=== PATIENT | female | born 1960 | race Two or more races ===

== ENCOUNTER 2025-07-30 06:32 | Emergency (ER) | payer MEDICARE, MEDICAID, SELFPAY ==
[2025-07-30 06:39] VITALS: BP 148/95; PULSE 93; RESP 18; TEMP 36.7; O2SAT 95
--- NOTE | 2025-07-30 06:50 | XR_ITS ---
Examination: Venous duplex lower extremity sonogram, bilateral. Date and time of exam: July 30, 2025, Technique: Multiple sonographic images of the deep venous system have been obtained. B-mode/2-D grayscale imaging of vascular structures and Doppler spectral analysis (waveforms) and color performed Both legs are examined. Findings: Deep venous systems do not demonstrate abnormal echogenicity. All visualized deep veins exhibit compressibility. All visualized deep veins exhibit augmentation. Impression: Negative for deep vein thrombosis
--- NOTE | 2025-07-30 06:50 | PD.EDRME ---
Rapid Medical Screening Exam RME Arrival date/time: 07/30/25 06:32 65-year-old female presents to the emergency department today for complaints of generalized fatigue and joint pain ongoing x 1 month Chief Complaint: General Adult/Misc Complain Vital signs: Vital Signs Temperature 98.1 F 07/30/25 06:39 Pulse Rate 93 07/30/25 06:39 Respiratory Rate 18 07/30/25 06:39 Blood Pressure 148/95 H 07/30/25 06:39 Pulse Oximetry (%) 95 07/30/25 06:39
--- NOTE | 2025-07-30 07:04 | EDNOTE_ITS ---
ED General RME/HPI General Chief complaint: General Adult/Misc Complain Stated complaint: Bones aches, Chills, swollen feet Time Seen by Provider: 07/30/25 07:03 Arrival date/time: 07/30/25 06:32 RME / HPI RME / HPI narrative: Ivy is a 65 y/o female with PMHx of insulin-dependent type 2 diabetes, hypertension, hyperlipidemia comes in for an evaluation of generalized weakness and body aches with associated lower extremity swelling bilaterally. Patient reports that she initially thought it was arthritis, however she says that she has not worked in over 3 years and thought that it could be something else other than osteoarthritis. She says that her lower extremities have been swelling and also have been aching her as well. 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 Her primary care doctor is Dr. Liz. She reports that she sometimes gets short of breath when bending over and sometimes feel chest pressure while laying down at night. She currently does not have any dyspnea, does not use home oxygen. Denies any recent travel, or new medicines. No one around her is feeling like this according to her. No other complaints at this time. Related Data Previous Rx's ?Medication ?Instructions ?Recorded insulin glargine 100 unit/mL 40 unit (0.4 mL) subcut Q DAY 30 05/15/23 subcutaneous solution days #12 mL pen needle, diabetic 31 gauge x #100 ea 05/15/23 1/4 (Pen Needle) Allergies Allergy/AdvReac Type Severity Reaction Status Date / Time Penicillins Allergy Verified 05/07/23 09:17 Review of Systems Review of Systems Narrative Review of Systems: 12 point ROS reviewed and is otherwise negative unless stated directly in the HPI ED Exam Narrative Physical exam: General: AAOx3, NAD, Mongolian-speaking male, obese HEENT: Moist mucous membranes, conjunctiva clear, EOMI, PERRLA, Cardiovascular: S1, S2, radial pulses +2 bilat, RRR Pulmonary: CTAB bilat no cough, no wheezing GI: No tenderness to light or deep palpitation, no guarding, rigidity, rebound tenderness or distension Extremities: +2 pitting edema bilaterally, dorsalis pedis pulses +2 bilaterally Neuro: AAOx3, no focal motor or sensory deficits in the UE or LE bilat Psych: Good judgement, thought and behavior Course Quality Measures none Orders Category Date Time Status EKG (ED ONLY) *Do not use* NOW Care 07/30/25 08:13 Completed Insert IV NOW Care 07/30/25 08:11 Active EKG (ED Only) Stat Exams 07/30/25 08:13 Draft US venous doppler LE BI Stat Exams 07/30/25 06:50 Completed XR chest 1V portable Stat Exams 07/30/25 08:18 Completed BNP [B-Type Natriuretic Peptide] Stat Lab 07/30/25 08:27 Completed CBC Stat Lab 07/30/25 08:27 Completed CRP [C-Reactive Protein] Stat Lab 07/30/25 08:27 Completed Comprehensive Metabolic Panel Stat Lab 07/30/25 08:27 Completed Drug Screen,Urine Stat Lab 07/30/25 08:18 Completed Protein Total, Random Urine Stat Lab 07/30/25 08:18 Completed Troponin I Stat Lab 07/30/25 08:27 Completed UA, C/S IF [Urinalysis, C/S if Indicated] Stat Lab 07/30/25 08:23 Completed Vital Signs Vital signs: Vital Signs Temperature 98.1 F 07/30/25 06:39 Pulse Rate 93 07/30/25 06:39 Respiratory Rate 18 07/30/25 06:39 Blood Pressure 148/95 H 07/30/25 06:39 Pulse Oximetry (%) 95 07/30/25 06:39 Discharge Plan Plan Patient Disposition: HOME (Self Care) Prescriptions/Referrals Prescriptions/Med Rec: No Action insulin glargine 100 unit/mL solution 40 unit subcut QDAY 30 Days Qty: 12 2RF (DME) pen needle, diabetic [Pen Needle] 31 gauge x 1/4 needle See Rx Instructions .Route Qty: 100 0RF Rx Instructions: As directed Referrals: Brian Liz MD [Primary Care Provider, Family Practice] - In 1 week Problem List Clinical Impression: Bilateral edema of lower extremity Patient/Caregiver Discharge Instructions Discharge Activity: activity as tolerated Education Materials: ED Leg Swelling in Both Legs Additional Instructions: Discharge instructions Follow-up with your PCP within 1 week We are recommending you to stop taking Amlodipine as we believe this could be causing your lower extremities to swell. Speak with your PCP about this and you will need alternative blood pressure medicines if you stop taking amlodipine. Consider repeating a complete metabolic panel upon one week of discharge with your PCP as your bicarbonate was slightly elevated in the ED. If you begin to have pain in one of your legs, return to the ED. Return to ED if your symptoms worsen or return Instrucciones para el kasie: Consulte con munoz m?dico de cabecera en el plazo de michael semana Le recomendamos que deje de aleksandr amlodipino, ya que creemos que podr?a estar causando inflamaci?n en ronnie extremidades inferiores. Consulte con munoz m?dico de cabecera sobre esto; necesitar? medicamentos alternativos para la presi?n arterial si giovana de aleksandr amlodipino. Considere repetir un perfil metab?katrina completo michael semana despu?s del kasie con munoz m?dico de cabecera, ya que munoz nivel de bicarbonato estaba ligeramente elevado en urgencias. Si comienza a sentir dolor en michael pierna, regrese a urgencias. Regrese a urgencias si los s?ntomas empeoran o reaparecen. Print Language: Mongolian Stand Alone Forms: [employer]ha Award Info., Patient Portal Info Letter MDM Narrative MDM hospital course (for use when minimal MDM required): 0818: Will follow-up on previous orders that includes basic labs, BMP and lower extremity ultrasound bilaterally. Will also order chest x-ray, troponin and random total protein in the urine. 0945: Upon reviewing labs, patient does not have leukocytosis, hemoglobin is 12.3, her bicarb is about 31.5, creatinine 0.5, liver function studies within normal limits negative troponin, BNP within normal limits. Her urine protein is negative in addition to her urine total protein. Her chest x-ray does not show pneumonia or pulmonary edema or enlarged cardiac silhouette. At this point, patient is not requiring oxygen, her liver function and kidney function studies are normal. Upon reviewing her medications, amlodipine 10 mg is a medicine she takes. Patient reports that she started taking this about a month ago, however it seems that it was prescribed also before a month ago. we are not sure if there was a dose increase to 10 mg, however at this point we will recommend patient to stop taking calcium channel dean as a known side effect or bilateral lower extremity swelling. Her duplex ultrasound of the lower extremity bilaterally is normal. Patient may have had an increased dose of the amlodipine which caused her to have the lower extremity swelling, however typically this can occur at any point when patient is taking medicine. Patient will need to have a conversation with her primary care doctor in regards to alternatives of amlodipine for another blood pressure medicine as she will need one to replace amlodipine. Patient states that she has an appointment tomorrow and at this time since she has an appointment tomorrow, we will have her primary care doctor adjust her medicines and will not change them at this time other than recommending to stop along loaded pain. Patient is medically cleared for discharge at this time. For further workup of her generalized bodyaches, at this point we can likely attribute it to osteoarthritis and she will need to follow-up with her primary care doctor for further workup. Patient is medically clear for discharge at this time. EKG Interpretation EKG #1: EKG Interpretation: Sinus rhythm, rate of 77, QTc 407, no ST changes Diagnosis Diagnoses ruled out and/or further discussions: CHF, Nephrotic, Liver disease, medication side effect CHF, nephrotic, and liver disease ruled out. Likely medication side effect from CCB.
--- NOTE | 2025-07-30 08:13 | EKG_ITS ---
[facility] Test Date: 2025-07-30 Pat Name: TIFFANY SHAH Department: Room: - Gender: Female [employer]: : 1960 Requested By: Debbie Banerjee Order Number: [id number] Reading MD: Debbie Banerjee Measurements Intervals [place] Rate: 77 P: 38 [place]: 189 QRS: 26 QRSD: 88 T: 36 QT: 407 QTc: 463 Interpretive Statements SINUS RHYTHM Compared to ECG 05/14/2023 15:36:27 Myocardial infarct finding no longer present /store/S0/[id number].pdf
--- NOTE | 2025-07-30 08:18 | XR_ITS ---
EXAMINATION: AP chest single view TECHNIQUE: AP portable upright chest single view Date and time: July 30, 2025, 0833 hours, comparison May 12, 2023 INDICATIONS: Shortness of breath today. FINDINGS: Mild prominence left ventricle. Mild elevation right hemidiaphragm. No pneumonia or pulmonary edema. Prominent osteopenia IMPRESSION: No pneumonia or pulmonary edema
[2025-07-30 08:24] VITALS: BMI 30.2
[2025-07-30 08:28] VITALS: BP 142/93; PULSE 74; RESP 16; TEMP 36.6; O2SAT 96
[2025-07-30 08:35] LABS: Collection Type, Urine Clean Catch; Squamous Epithelial Cell,Urine 0 /hpf (0-5)
[2025-07-30 08:56] LABS: Basophils # (Auto) 0.0 Thou/mm3 (0.0-0.2); Basophils % (Auto) 0 % (0-2.5); Eosinophils # (Auto) 0.0 Thou/mm3 (0.0-0.5); Eosinophils % (Auto) 0 % (0-10); Hematocrit 38.6 % (36.0-46.0); Hemoglobin 12.3 g/dL (12.0-16.0); Immature Granulocytes Auto 0.01 Thou/mm3 (0.00-0.00); Lymphocytes # (Auto) 1.8 Thou/mm3 (1.0-4.8); Lymphocytes % (Auto) 36 % (10-50); Mean Corpuscular HGB Conc 31.9 g/dl (31.0-37.0); Mean Corpuscular Hemoglobin 24.1 pg (25.0-35.0); Mean Corpuscular Volume 76 fL (80-100); Monocytes # (Auto) 0.7 Thou/mm3 (0.0-0.8); Monocytes % (Auto) 14 % (0-12); Neutrophils # (Auto) 2.5 Thou/mm3 (1.8-7.7); Neutrophils % (Auto) 51 % (37-80); Nucleated Red Blood Cell # 0.00 Thou/mm3 (0.00-0.00); Nucleated Red Blood Cell % 0 /100 WBC (0); Platelet Count 308 Thou/mm3 (140-440); RDW Standard Deviation 42.9 fL (36.4-46.3); Red Blood Count 5.11 Miln/mm3 (4.00-5.20); White Blood Count 5.0 Thou/mm3 (3.6-11.0)
[2025-07-30 08:57] LABS: Bilirubin,Urine Negative (Negative); Blood,Urine Negative (Negative); Clarity,Urine Clear (Clear/Hazy); Color,Urine Colorless (Lt Yel-Yel); Culture Indicated,Urine Not Indicated; Glucose, Urine Negative (Negative); Ketones,Urine Negative (Negative); Leukocyte Esterase,Urine Negative (Negative); Nitrite,Urine Negative (Negative); PH,Urine 6.5 (5.0-7.0); Protein,Urine Negative (Neg - Trace); RBC,Urine 1 /hpf (0-3); Specific Gravity,Urine 1.008 (1.001-1.035); Urobilinogen,Urine Negative mg/dL (0.0-1.0); WBC,Urine 1 /hpf (0-5)
[2025-07-30 08:57] LABS: Amphetamine/Methamp Scrn,U Negative (Negative); Barbiturate Screen,Urine Negative (Negative); Benzodiazepines Screen,Urine Negative (Negative); Benzoylecgonine Screen, Ur Negative (Negative); Fentanyl Screen,Urine Negative (Negative); Opiate Screen,Urine Negative (Negative); Protein Total, Random Urine < 6 mg/dL (1-14); THC Screen,Urine Negative (Negative)
[2025-07-30 08:57] LABS: Alanine Aminotransferase 22 U/L (10-49); Albumin, Serum 4.2 gm/dL (3.4-4.8); Albumin/Globulin Ratio 1.6 (1.2-2.2); Alkaline Phosphatase 86 U/L (46-116); Anion Gap 9 (7-16); Aspartate Amino Transferase 26 U/L (0-34); BUN/Creatinine Ratio 18 Ratio (12-20); Bilirubin,Total 0.7 mg/dL (0.3-1.2); Blood Urea Nitrogen 9 mg/dL (9-23); C-Reactive Protein < 0.5 mg/dL (0.0-0.9); Calcium 9.4 mg/dL (8.3-10.6); Calcium (Corrected) 9.4 mg/dL (8.5-10.1); Carbon Dioxide 31.5 mMol/L (20.0-31.0); Chloride 100 mMol/L (98-107); Creatinine (Component) 0.5 mg/dL (0.6-1.3); Estimated Creatinine Clearance 92.8 mL/min (>60); Globulin 2.6 gm/dL (2.3-3.5); Glucose 116 mg/dL (74-106); Osmolality,Calculated 279 (275-295); Potassium 3.7 mMol/L (3.4-5.1); Sodium 140 mMol/L (136-145); Total Protein 6.8 gm/dL (5.7-8.2); Troponin I < 0.002 ng/mL (0.0-0.045); eGFR > 60 See Note
[2025-07-30 09:19] LABS: B-Type Natriuretic Peptide < 20 pg/mL (0-100)
[2025-07-30 10:25] VITALS: BP 135/92; PULSE 71; RESP 20; TEMP 36.9; O2SAT 95
== END 2025-07-30 10:33 | disposition home or self-care (01) ==
PROVIDERS: Nurse Practitioner Primary Care; PCP Family Medicine
DX: R60.0 Localized edema (principal); E11.9 Type 2 diabetes mellitus without complications; E78.5 Hyperlipidemia, unspecified; I10 Essential (primary) hypertension; Z79.4 Long term (current) use of insulin
CPT/HCPCS: 36415; 71045; 80053; 80307; 81001; 83880; 84156; 84484; 85025; 86140; 93005; 93970; 99283